=== PATIENT | male | born 1985 | race Caucasian/White ===

== ENCOUNTER 2017-02-18 13:24 | Emergency (ER) | payer MEDICAID, OTHER ==
[~2017-02-18] VITALS: Ht 175.3 cm; Wt 90.4 kg
[~2017-02-18 13:24] MED LIST: CYCL-319 PO; IBUP-1542 PO; ONDA4TAB35 PO
[2017-02-18 13:30] VITALS: Ht 175.3 cm; Wt 90.4 kg
[2017-02-18] MEDS ORDERED: ACYC800T57 PO (15:48)
[2017-02-18] MEDS ORDERED: PRED20TA PO (15:48)
--- NOTE | 2017-02-18 16:26 | RADRPT ---
PROCEDURE: CT Brain without. CLINICAL INDICATION: Right facial paralysis. TECHNIQUE: A CT of the brain was performed on multidetector high-resolution CT scanner utilizing a xial sections from the skull base through the vertex without contrast. The scan was reviewed in sof t tissue brain and high frequency resolution bone algorithm windows. Images were reviewed on a high -resolution PACS workstation. One or more the following does reduction techniques were utilized: Aut omated exposure control, adjustment of the mA/ or kV according to patient's size, or use of iterativ e reconstruction technique. The exam CTDI = 42.56 mGy and the DLP = 720.23 mGy-cm. DICOM images are available. COMPARISON: None available. FINDINGS: The ventricles and sulci are age-appropriate. There is no intracranial hemorrhage, mass effect or mi dline shift. No abnormal intra-axial or extra-axial fluid collections are seen. The reese/white jermain er differentiation is preserved. No acute skull abnormality is noted. The visualized paranasal sinus es are essentially clear. IMPRESSION: 1. No acute intracranial hemorrhage, transcortical infarction or mass effect. If clinical concern p ersists consider brain MRI. RPTAT: HH .Javon Arrington MD, MD Date Time Electronically viewed and signed by .Javon Arrington MD, MD on 02/18/2017 16:26 .N/
[2017-02-18] MEDS ORDERED: MINE3.5O31 BOTH EYES (16:37)
[2017-02-18] MEDS ORDERED: DEXT1DRO6 OP (16:37)
--- NOTE | 2017-02-18 16:51 | ERD ---
ER Documentation Chief Complaint Chief Complaint numbness on lt side of face since 0600 am , rt side facial droop HPI This 31-year-old male comes emergency room for noticing this morning that he had left-sided facial paralysis. He is unable to move the left side of his face and when he tries to drink liquids some of it dribbles out the left side of his mouth. He has no visual deficits. States that 3 days ago he felt weakness in his whole body. Denies any known herpetic infection. Has trouble closing the left eye. He does not have weakness in any other part of his body. He has concerned that it might be related to familial Mediterranean fever for unknown reasons. Patient has no fevers. Finnish ticket attendant was used at the bedside. ROS All systems reviewed and are negative except as per history of present illness. Medications Home Meds Active Scripts Dextran 70/Hypromellose (Artificial Tears) 1 Each Droperette, 1 EACH OP QID, #1 Prov:RAYSHAWNTACO DO 02/18/17 Artificial Tears* (Akwa Oint*) 3.5 Gm Oint, 1 APPLIC BOTH EYES HS, #1 TUB Prov:RAYSHAWNTACO DO 02/18/17 Prednisone* (Prednisone*) 20 Mg Tab, 40 MG PO DAILY for 5 Days, TAB Prov:RAYSHAWNTACO DO 02/18/17 Acyclovir* (Zovirax*) 800 Mg Tablet, 800 MG PO 5 TIMES DAILY for 7 Days, TAB Prov:RAYSHAWNJOSELINTACO DO 02/18/17 Ondansetron Hcl* (Zofran* ODT) 4 mg -ODT Tab.disper, 4 MG PO Q6 Y for NAUSEA AND /OR VOMITING, #20 TAB Prov:BUSHRA GONZALEZ PA-C 08/19/15 Ibuprofen* (Motrin*) 600 Mg Tab, 600 MG PO Q6H Y for PAIN AND OR ELEVATED TEMP, #30 TAB Prov:BUSHRA GONZALEZ PA-C 08/19/15 Cyclobenzaprine Hcl* (Cyclobenzaprine Hcl*) 10 Mg Tablet, 10 MG PO QHS, #15 TAB Prov:BUSHRA GONZALEZ PA-C 08/19/15 Allergies Allergies: Coded Allergies: No Known Allergy (Unverified , 08/19/15) PMhx/Soc Medical and Surgical Hx: pt denies Medical Hx, pt denies Surgical Hx Hx Alcohol Use: No Hx Substance Use: No Hx Tobacco Use: No Smoking Status: Never smoker Physical Exam Vitals Vital Signs Date Time Temp Pulse Resp B/P Pulse Ox O2 Delivery O2 Flow Rate FiO2 02/18/17 13:30 98.2 73 18 131/88 100 Physical Exam Const: [] No distress Head: Atraumatic Eyes: Normal Conjunctiva, PERRLA, EOMI, only partially blinks with left eye. Unable to fully close left eye. ENT: Normal External Ears, Nose and Mouth. Sensation is intact to the left face. Neck: Full range of motion.. No meningismus Skin: No petechiae or rashes Back: No midline or flank tenderness Ext: No cyanosis, or edema Neur: Awake and alert oriented 3, cranial nerves II through XII intact with the exception of the facial nerve distribution, acquisition editor strength equal 5 out of 5 strength of all extremities, normal gait. Psych: Normal Mood and Affect Procedures/MDM Stein's palsy. Please facial nerve paralysis on the left side only. Patient was worried and expressed great desire to have a head scan. CT of the head was performed which was normal. I have very low suspicion for cerebrovascular accident. No trauma. Going to discharge him with acyclovir, prednisone, artificial tears both and drops and ointment for at night. Instructed to follow -up with his primary care doctor for a neurology referral if the condition is not quickly resolving. Told him it may take up to 2 weeks. I have also told him to return to emergency room for any symptoms of extremity weakness or any other concerning symptom at all. CT head interpretation: I see no acute or chronic process. I see no hemorrhage , no mass-effect, admit no midline shift, no skull fracture. Departure Diagnosis: Primary Impression: Stein's palsy Condition: Stable Patient Instructions: Stein's Palsy Additional Instructions: Call your primary care doctor TOMORROW for an appointment during the next 2-3 days.See the doctor sooner or return here if your condition worsens before your appointment time. TACO TABARES DO Feb 18, 2017 16:50
[2017-02-18 17:04] VITALS: BP 139/74; PULSE 78; RESP 20; TEMP 98.5
== END 2017-02-18 17:15 | disposition home or self-care (01) ==
LOC: E/R 13:24
DX: G51.0 Bell's palsy (principal); R40.2252 Coma scale, best verbal response, oriented, at arrival to emergency department; R40.2142 Coma scale, eyes open, spontaneous, at arrival to emergency department; R40.2362 Coma scale, best motor response, obeys commands, at arrival to emergency department
CPT/HCPCS: 70450; Z7502